=== PATIENT | male | born 1960 | race Hispanic/Latino ===

== ENCOUNTER → 2024-12-15 | Outpatient (CLI) | payer OTHER ==
[~2024-12-15] MED LIST: REGADENOSON 0.4 MG/5 ML PF SYG IVP ONE
--- NOTE | 2024-12-15 14:34 | HMCIMG ---
NM GASTRIC EMPTYING STUDY REASON: Abdominal Distension COMPARISON: None TECHNIQUE: Routine imaging protocol was performed following ingestion of 1.5 mCi technetium 99 mixed in 2 scrambled eggs. FINDINGS: Time activity curve demonstrates a T1 half of emptying of 48 minutes. This is within normal limits, upper limit of normal is 90 minutes. There is no reflux during the exam. IMPRESSION: 1. Normal gastric emptying exam, the T1 half is 48 minutes.
== END | disposition home or self-care (01) ==
LOC: RAH 09:32
PROVIDERS: ATTEND Internal Medicine Gastroenterology
DX: R14.0 Abdominal distension (gaseous) (principal)
CPT/HCPCS: 78264; A9541; J2785

== ENCOUNTER → 2024-12-16 | Outpatient (CLI) | payer OTHER ==
[2024-12-16] MEDS: REGADENOSON 0.4 MG/5 ML PF SYG IVP ONE (14:23)
--- NOTE | 2024-12-16 18:59 | HMCSR ---
APPROVED REPORT Height: 5 ft 6in Weight: 269 lbs TEST INDICATIONS I25.709 TACHYCARDIA UNSPECIFIED The imaging protocol used to acquire images was Rest Tc-99m/stress Tc-99m 1 day Consent: The procedure was explained and understood by the patient. Informerd consent was witnessed Luis Manuel Garsia RN First, low dose rest was performed then high dose stress. RESTING DATA: The resting ekg shows: NSR Rest SPECT myocardial perfusion imaging was performed in supine position 78 minutes following the int ravenous injection of 10.7 mCi of Tc-99 Sestamibi. Time of rest injection: 13:29:32 Date: 12/16/2024 Time of rest imagin:29:32 Date: 12/16/2024 PHARMACOLOGIC STRESS: Pharmacologic stress test was performed by injecting regadenoson 0.4 mg IV push followed by the intra venous injection of 32.2 mCi of Tc-99 Sestamibi. Time of stress injection: 10:06: Date: 12/16/2024 Time of stress imagin:02: Date: 12/16/2024 Heart Rate at time of stress injection: 65 bpm. Gated Stress SPECT was performed 56 minutes after stress injection. The images were gated to evaluate regional wall motion and calculate left ventricular ejection fracti on. STRESS DETAILS Reason for Termination: Infusion complete Stress Symptoms: Dyspnea Max HR Achieved: 87 bpm % of APMHR Achieved: 55 Max Blood Pressure: 132/57 mmHg Stress ECG: NSR Study quality was good. Lung uptake was Normal. Artifact: No artifact LEFT VENTRICLE Size: The left ventricular size is normal. Systolic Function:The left ventricular systolic function is normal. Wall Motion: No regional wall motion abnormalities noted. The left ventricular ejection fraction was calculated to be 55%.TID = 0.72. LV PERFUSION Large, moderately severe mid and apical anterior and anterolateral and apical reversible defect consi stent with LAD ischemia. RV Size/Shape Normal RV Conclusion Large, moderately severe mid and apical anterior and anterolateral and apical reversible defect consi stent with LAD ischemia. The left ventricular ejection fraction was calculated to be 55%.TID = 0.72.
== END | disposition home or self-care (01) ==
LOC: EDUNIT# 10-18 08:00 → SHCH 07:33
PROVIDERS: ATTEND Internal Medicine Cardiovascular Disease
DX: R00.0 Tachycardia, unspecified (principal); R06.00 Dyspnea, unspecified; I25.709 Atherosclerosis of coronary artery bypass graft(s), unspecified, with unspecified angina pectoris
CPT/HCPCS: 78452; 93017; J2785; A9500 ×2